=== PATIENT | male | born 1985 | race Caucasian/White ===

== ENCOUNTER 2018-05-12 18:30 | Observation (INO) ==
[2018-05-12] MEDS ORDERED: Morphine Inj 4 MG/ML Vial IV.PUSH ONE (23:45)
[2018-05-12] MEDS ORDERED: Sod Chloride 0.9% Inj 1,000 ML IV.SIG SCH (23:45)
[2018-05-12] MEDS ORDERED: Vancomycin Inj 2,250 MG in Sodium Chlor 0.9% Inj 500 ML IV.SIG SCH (23:45)
[2018-05-12] MEDS ORDERED: Piperacil/Tazo 4.5 GM Premix 4.5 GM/100 ML BAG IV.SIG SCH (23:45)
--- NOTE | 2018-05-12 23:53 | ED ---
HPI General Chief complaint: Skin/Abscess/Foreign Body Stated complaint: skin abscess Time Seen by Provider: 05/12/18 23:33 Source: patient Mode of arrival: ambulatory Limitations: no limitations History of Present Illness HPI narrative: 33-year-old white male presents emergency department with complains of a scrotal abscess. He was seen at an urgent care and an ultrasound had been performed revealing a 4.8 x 2.1 x 3.3 cm suggestive of a soft tissue abscess in the inferior portion of the scrotum. Patient states that this is been present now for the past 4 days. It has been tender and swollen. Patient denies any fever chills. No nausea vomiting. He denies any history of diabetes. He denies any direct trauma. No fever chills. Symptoms are moderate. No alleviating or exacerbating activity. No urinary symptoms. No abdominal pain. Related Data Home Medications Medication Instructions Recorded Confirmed No Known Home Medications 05/12/18 05/12/18 Allergies Allergy/AdvReac Type Severity Reaction Status Date / Time No Known Allergies Allergy Unverified 05/12/18 23:40 Review of Systems ROS: all other systems reviewed are negative [facility] Medical History Medical History HTN (hypertension) (Acute) Sepsis (Acute) Social History Social History Smoking Status: Never smoker How Often Do You Have a Drink Containing Alcohol: 4 or more times a week Recent Out of Country Travel within the Last 8 Weeks: No Immunization History Tetanus Immunization: <5 Years Hx Influenza Vaccine This Season: No Exam Narrative Exam Narrative: GENERAL: Well-developed, well-nourished in no acute distress. Nontoxic appearing. HEAD: Normocephalic, atraumatic. EYES: Pupils equal round and reactive. Extraocular motions intact. No scleral icterus. No injection or drainage. ENT: TMs clear without erythema. The external auditory canals clear. Nose: clear . Posterior pharynx is pink and moist. No tonsillar edema or exudate. Uvula midline. Airway patent. NECK: Trachea midline.Supple, nontender, moves head freely. No central bony tenderness or spasm. CARDIOVASCULAR: Regular rate and rhythm without murmurs, gallops, or rubs. RESPIRATORY: Clear to auscultation. Breath sounds equal bilaterally. No wheezes , rales, or rhonchi. GASTROINTESTINAL: Abdomen soft, non-tender, nondistended. No hepato-splenomegaly , or palpable masses. No guarding. EXTREMITIES: No clubbing, cyanosis, or edema. No joint tenderness, effusion, or edema noted. BACK: Nontender without deformity or crepitance. No flank tenderness. Male : Circumcised male. No urethral discharge. Scrotum reveals a soft tissue mobile mildly tender mass in the inferior portion of the scrotum. This does not appear to communicate with the rectum, or testicles. His testicles appear to be normal-appearing without mass. No tenderness. No urethral discharge. This does not appear to be a Jalil's gangrene Course Initial Documented Vital Signs Temperature 98.3 F 05/12/18 19:52 Pulse Rate 119 H 05/12/18 19:52 Respiratory Rate 16 05/12/18 19:52 Blood Pressure 173/103 H 05/12/18 19:52 Pulse Oximetry 99 05/12/18 19:52 Last Documented Vital Signs Temperature 98.3 F 05/12/18 19:52 Pulse Rate 104 H 05/13/18 00:15 Respiratory Rate 15 05/13/18 00:15 Blood Pressure 167/104 H 05/13/18 00:15 Pulse Oximetry 100 05/13/18 00:15 Medical Decision Making MDM Narrative Medical decision making narrative: IV access is obtained. CBC, chemistry ordered. Patient is given liter bolus of saline, Zosyn 4.5 g IV, 20 mg/kg of vancomycin IV. Morphine 4 mg IV. Zofran 4 mg sublingual. The patient has a mobile abscess in the scrotum. I believe that the patient would be best suited with IV antibiotics, observation admission with urology consult in the morning. This case has been discussed with Dr. Gtz who is accepted his admission. She is aware of the ultrasound findings, laboratory testing. Medical Screen Exam Complete: Yes Emergency Medical Condition: Yes Differential Diagnosis Differential Diagnosis: MDM: High Differential diagnoses: Abscess, folliculitis, cellulitis, lymphangitis, abrasion, contact dermatitis Lab Data Result diagrams: 05/13/18 00:14 05/13/18 00:14 Lab Results 05/13/18 05/13/18 Range/Units 00:14 00:14 WBC 11.0 (4.0-11.0) th/mm3 RBC 4.66 (4.50-5.90) mil/mm3 Hgb 15.3 (13.0-17.0) gm/dL Hct 44.7 (39.0-51.0) % MCV 95.8 (80.0-100.0) fL MCH 32.8 (27.0-34.0) pg MCHC 34.2 (32.0-36.0) % RDW 13.3 (11.6-17.2) % Plt Count 296 (150-450) th/mm3 MPV 7.4 (7.0-11.0) fL Neut % (Auto) 76.4 H (16.0-70.0) % Lymph % (Auto) 13.1 (9.0-44.0) % [place] % (Auto) 7.4 (0.0-8.0) % Eos % (Auto) 2.1 (0.0-4.0) % Baso % (Auto) 1.0 (0.0-2.0) % Neut # (Auto) 8.4 H (1.8-7.7) th/mm3 Lymph # (Auto) 1.4 (1.0-4.8) th/mm3 [place] # (Auto) 0.8 (0.0-0.9) th/mm3 Eos # (Auto) 0.2 (0.0-0.4) th/mm3 Baso # (Auto) 0.1 (0.0-0.2) th/mm3 WBC Differential . Differential Comment Auto diff final Sodium 138 (136-145) meq/L Potassium 4.4 (3.5-5.1) meq/L Chloride 99 (98-107) meq/L Carbon Dioxide 28.6 (21.0-32.0) meq/L Anion Gap 10 (5-15) meq/L BUN 13 (7-18) mg/dL Creatinine 1.02 (0.60-1.30) mg/dL Estimated GFR 83 L (>89) mL/min Random Glucose 99 (74-106) mg/dL Calcium 9.7 (8.5-10.1) mg/dL Discharge Plan Discharge Disposition Patient Disposition: 30 Still Patient Discharge Condition Condition: Stable Physicians Team ED Provider: [facility] Midlevel Provider: Jorge Skinner Primary Care Provider: Primary Care Physici,No Rxs /Orders / Referrals /Forms Prescriptions: No Action No Known Home Medications RF: 0 Status ED Status: With Doctor
[2018-05-12] MEDS ORDERED: Lisinopril 10 MG Tablet PO ONE (23:54)
[2018-05-13 00:30] LABS: Baso # (Auto) 0.1 th/mm3 (0.0-0.2); Eos # (Auto) 0.2 th/mm3 (0.0-0.4); Eos % (Auto) 2.1 % (0.0-4.0); Hematocrit 44.7 % (39.0-51.0); Hemoglobin 15.3 gm/dL (13.0-17.0); Lymph # (Auto) 1.4 th/mm3 (1.0-4.8); Lymph % (Auto) 13.1 % (9.0-44.0); Mean Corpuscular HGB Conc 34.2 % (32.0-36.0); Mean Corpuscular Hemoglobin 32.8 pg (27.0-34.0); Mean Corpuscular Volume 95.8 fL (80.0-100.0); Mean Platelet Volume 7.4 fL (7.0-11.0); Mono # (Auto) 0.8 th/mm3 (0.0-0.9); Mono % (Auto) 7.4 % (0.0-8.0); Neut # (Auto) 8.4 th/mm3 (1.8-7.7); Neut % (Auto) 76.4 % (16.0-70.0); Platelet Count 296 th/mm3 (150-450); Red Blood Count 4.66 mil/mm3 (4.50-5.90); Red Cell Distribution Width 13.3 % (11.6-17.2)
[2018-05-13 00:46] LABS: Calcium 9.7 mg/dL (8.5-10.1); Carbon Dioxide 28.6 meq/L (21.0-32.0); Potassium 4.4 meq/L (3.5-5.1)
[2018-05-13] MEDS ORDERED: Vancomycin Consult Pharmacy OTHER PRN (02:52)
[2018-05-13] MEDS ORDERED: Acetaminophen 325 MG Tablet PO PRN (02:54)
[2018-05-13] MEDS ORDERED: Bisacodyl 10 MG Supp RECTAL PRN (02:54)
[2018-05-13] MEDS: Sod Chloride 0.9% Inj 1,000 ML IV.CONT SCH ×4 (03:23→18:36)
--- NOTE | 2018-05-13 03:58 | P.HPIM ---
History of Present Illness Service: [facility] Primary Care Physician: No Primary Care Physician Chief Complaint: scrotal pain History of Present Illness: 33 y/o male with a history of HTN on no medication presented to the ED with complaints of a scrotal abscess. He was seen at an urgent care and an ultrasound had been performed revealing a 4.8 x 2.1 x 3.3 cm suggestive of a soft tissue abscess in the inferior portion of the scrotum. He states it has been going on for 4 days and started small but then go bigger. He states it is tender to touch. NO associated fevers or chills noted. He denies any chest pain , sob, nausea or vomiting. Review of Systems All other systems reviewed negative except as stated in HPI [facility] - History History Provided By: Patient - Medical / Surgical Hx Neg / Unobtainable Surgical History: No Previous Surgery - Medical History Medical History: Medical History (Last Reviewed 05/13/18 @ 03:51 by NICHOL Hernández) HTN (hypertension) Sepsis - Surgical History Surgical History: Surgical History (Last Reviewed 05/13/18 @ 03:51 by NICHOL Hernández) History of nasal surgery - Family History Family History: Family History (Last Reviewed 05/13/18 @ 03:51 by NICHOL Hernández) Father HTN (hypertension) - Social History I have reviewed the patient's Social History: Yes - Tobacco History Smoking Status: Never smoker - Alcohol History How Often Do You Have a Drink Containing Alcohol: 4 or more times a week - Travel History Recent Travel Out of the Country Within the Last 8 Weeks: No - Immunization History Tetanus Immunization: <5 Years Hx Influenza Vaccine This Season: No Medications and Allergies Active Medications: Active Medications Acetaminophen (Tylenol) 650 mg PO Q4H PRN PRN Reason: Temp > 100.4 Al Hydroxide/Mg Hydroxide (Milk Of Magnsara Liq) 30 ml PO Q12H PRN PRN Reason: Mild Constipation Bisacodyl (Dulcolax Supp) 10 mg RECTAL DAILY PRN PRN Reason: SEVERE CONSITIPATION Sodium Chloride (Ns Inj) 1,000 mls @ 0 mls/hr IV.SIG BOLUS [facility] Last Infusion: 05/13/18 01:36 Dose: Infused Sodium Chloride (Ns Inj) 1,000 mls @ 125 mls/hr IV.CONT .Q8H [facility] Last Admin: 05/13/18 03:23 Dose: 125 mls/hr Piperacillin/Tazobactam/Dextrose (Zosyn 3.375 Gm Premix) 50 mls @ 100 mls/hr IV.SIG Q6H [facility] Vancomycin HCl 2,250 mg/ (Sodium Chloride) 522.5 mls @ 250 mls/hr IV.SIG Q12H [facility] Lactulose (Lactulose Liq) 30 ml PO DAILY PRN PRN Reason: SEVERE CONSITIPATION Morphine Sulfate (Morphine Inj) 4 mg IV.PUSH Q4H PRN PRN Reason: pain 6-10 Ondansetron HCl (Zofran Inj) 4 mg IV.PUSH Q6H PRN PRN Reason: NAUSEA OR VOMITING Pharmacy Profile Note (Vancomycin Consult Pharmacy) 1 each OTHER UNSCH PRN PRN Reason: Pharmacy to dose Senna/Docusate Sodium (Lindsay-Colace) 1 tab PO BID [facility] Sennosides (Senokot) 17.2 mg PO Q12H PRN PRN Reason: Moderate Constipation Sodium Chloride (Ns Flush) 2 ml IV.FLUSH PRN PRN PRN Reason: FLUSH AFTER USING IV ACCESS Allergies Allergy/AdvReac Type Severity Reaction Status Date / Time No Known Allergies Allergy Unverified 05/12/18 23:40 Home Medications Medication Instructions Recorded Confirmed Type No Known Home Medications 05/12/18 05/12/18 History Exam Vital signs: Vital Signs 05/12/18 19:52 05/13/18 00:15 05/13/18 02:54 Temperature 98.3 F Pulse Rate 119 H 104 H 100 H Respiratory Rate 16 15 16 Blood Pressure 173/103 H 167/104 H 140/84 Pulse Oximetry 99 100 97 Intake & Output 05/12/18 05/12/18 05/13/18 06:59 18:59 06:59 Intake Total 1100 / 1100 Balance 1100 / 1100 Weight 113.398 kg Intake: IV 1100 / 1100 Zosyn 4.5 GM Premix 4.5 gm In 100 / 100 100 ml @ 200 mls/hr IV.SIG Q8H [facility] Rx#:[id number] NS Inj 1,000 ML @ Wide Open IV. 1000 / 1000 SIG BOLUS [facility] Rx#:[id number] Narrative: GENERAL: This is a well-nourished, well-developed patient, in no apparent distress. CARDIOVASCULAR: Regular rate and rhythm without murmurs, gallops, or rubs. RESPIRATORY: Clear to auscultation. Breath sounds equal bilaterally. No wheezes , rales, or rhonchi. GASTROINTESTINAL: Abdomen soft, non-tender, nondistended. Normal active bowel sounds :Scrotum reveals a soft tissue mobile mildly tender mass in the inferior portion of the scrotum. No drainage. MUSCULOSKELETAL: Extremities without clubbing, cyanosis, or edema. NEURO: Alert & Oriented x4 to person, place, time, situation. Moves all ext x4 Results - Labs CBC & Chem 7: 05/13/18 00:14 05/13/18 00:14 Labs: Short CBC 05/13/18 Range/Units 00:14 WBC 11.0 (4.0-11.0) th/mm3 Hgb 15.3 (13.0-17.0) gm/dL Hct 44.7 (39.0-51.0) % Plt Count 296 (150-450) th/mm3 BMP 05/13/18 00:14 Sodium 138 Potassium 4.4 Chloride 99 Carbon Dioxide 28.6 BUN 13 Creatinine 1.02 Calcium 9.7 Caprini VTE Risk Assessment Caprini VTE Risk Assessment: No/Low Risk (score <= 1) Caprini Risk Assessment Model: Point Value = 1 Point Value = 2 Point Value = 3 Point Value = 5 Age 41-60 Minor surgery BMI > 25 kg/m2 Swollen legs Varicose veins or History of unexplained or recurrent spontaneous Oral contraceptives or hormone replacement Sepsis (< 1 month) Serious lung disease, including pneumonia (< 1 month) Abnormal pulmonary function Acute myocardial infarction Congestive heart failure (< 1 month) History of inflammatory bowel disease Medical patient at bed rest Age 61-74 Arthroscopic surgery Major open surgery (> 45 min) Laparoscopic surgery (> 45 min) Malignancy Confined to bed (> 72 hours) Immobilizing plaster cast Central venous access Age >= 75 History of VTE Family history of VTE Factor V Leiden Prothrombin [id number] Lupus anticoagulant Anticardiolipin antibodies Elevated serum homocysteine Heparin-induced thrombocytopenia Other congenital or acquired thrombophilia Stroke (< 1 month) Elective arthroplasty Hip, pelvis, or leg fracture Acute spinal cord injury (< 1 month) Prophylaxis Regimen: Total Risk Factor Score Risk Level Prophylaxis Regimen 0-1 Low Early ambulation 2 Moderate Order ONE of the following: *Sequential Compression Device (SCD) *Heparin 5000 units SQ BID 3-4 Higher Order ONE of the following medications: *Heparin 5000 units SQ TID *Enoxaparin/Lovenox 40 mg SQ daily (WT < 150 kg, CrCl > 30 mL/min) *Enoxaparin/Lovenox 30 mg SQ daily (WT < 150 kg, CrCl > 10-29 mL/min) *Enoxaparin/Lovenox 30 mg SQ BID (WT < 150 kg, CrCl > 30 mL/min) AND/OR *Sequential Compression Device (SCD) 5 or more Highest Order ONE of the following medications: *Heparin 5000 units SQ TID (Preferred with Epidurals) *Enoxaparin/Lovenox 40 mg SQ daily (WT < 150 kg, CrCl > 30 mL/min) *Enoxaparin/Lovenox 30 mg SQ daily (WT < 150 kg, CrCl > 10-29 mL/min) *Enoxaparin/Lovenox 30 mg SQ BID (WT < 150 kg, CrCl > 30 mL/min) AND *Sequential Compression Device (SCD) Assessment and Plan - Plan Scrotal abscess Outpatient US revealed a 4.8 x 2.1 x 3.3 cm suggestive of a soft tissue abscess in the inferior portion of the scrotum. Consult urology Morphine IV for pain management IV antibiotics: Vancomycin and Zosyn NPO, IVF DVT prophylaxis: SCDS Discussed Condition With: Patient and RN
[2018-05-13 05:27] LABS: Activated Partial Thrombo Time 30.8 sec (24.3-30.1); INR 1.2 Ratio
[2018-05-13] MEDS: Piperacil/Tazo 3.375 GM Premix 50 ML IV.SIG SCH ×3 (06:00→18:33)
[2018-05-13] MEDS: Senna/Docusate Sodium 8.6/50 MG Tablet PO SCH (08:46)
[2018-05-13] MEDS: Vancomycin Inj 2,000 MG in Sodium Chlor 0.9% Inj 500 ML IV.SIG SCH (12:02)
--- NOTE | 2018-05-13 12:55 | MB ---
cc: KaydenCelestino Delgado DO DATE: 05/13/2018 HISTORY OF PRESENT ILLNESS: This is a pleasant 33-year-old male who presents with a 4-day history of scrotal swelling, who had a scrotal ultrasound demonstrating a scrotal abscess measuring 4.8 cm x 2.1 cm x 3.3 cm in size. He denies any fever or chills or prior history of any scrotal abscess. He is not a diabetic. He denies any fever or chills or difficulty with urination. No history of prostatitis. PAST MEDICAL HISTORY: Includes hypertension. PAST SURGICAL HISTORY: Hand surgery after dog bite. ALLERGIES: HE HAS NO ALLERGIES. MEDICATIONS: Refer to the chart. SOCIAL HISTORY: Drinks alcohol on occasion, but denies any smoking, denies using drugs. FAMILY HISTORY: Father with hypertension. REVIEW OF SYSTEMS: Scrotal swelling is noted. Denies chest pain, shortness of breath, abdominal pain, difficulty urination, gait disturbances, bleeding disorders, heat or cold intolerance, skin lesions. Remaining review of systems were reviewed and were negative. PHYSICAL EXAMINATION: VITAL SIGNS: Temperature 98.5, heart rate 86, respiratory rate 20, 134/81. GENERAL: Reveals a well-developed, well-nourished, 33-year-old male in no acute distress. HEENT: Normocephalic, atraumatic. Pupils equal, round, regular and reactive to light. Extraocular movements intact. NECK: Supple. HEART: Regular rate and rhythm. LUNGS: Clear. ABDOMEN: Soft, nontender, nondistended. GENITOURINARY: Scrotal abscess noted inferior scrotum approximately 4 cm in size. EXTREMITIES: Show no cyanosis, clubbing, or edema. LABORATORY DATA: White count 11.0, hemoglobin 15.3, hematocrit 44.7, platelet count of 296. PT 12, INR 1.2, PTT 30.8. BMP: Sodium 138, potassium 4. , chloride 99, CO2 28.6, BUN 13, creatinine 1.0, glucose of 99. ASSESSMENT AND PLAN: A 33-year-old male with evidence of scrotal abscess; we will make n.p.o. for I and D of scrotal abscess later today. Thank you for the consult. DO LISANDRO Santana/robbie/kd , 09:15 AM , 09:22 AM
[2018-05-13] MEDS ORDERED: Vancomycin Inj 2,250 MG in Sodium Chlor 0.9% Inj 500 ML IV.SIG SCH (13:00)
[2018-05-13] MEDS ORDERED: Metoprolol Tartrate 25 MG Tablet PO ONE (15:00)
[2018-05-13] MEDS ORDERED: Chlorhexidine Gluconate 2% 1 Pack (2 Cloths) TOPICAL ONE (15:00)
[2018-05-13] MEDS ORDERED: Sodium Chlor 0.9% Inj 500 ML IV.CONT ONE (15:00)
[2018-05-13] MEDS ORDERED: Dexmedetomidine Inj 200 MCG/2 ML Vial ONE (15:48)
--- NOTE | 2018-05-13 16:21 | P.OP ---
- Preoperative Diagnosis (1) Scrotal abscess - Postoperative Diagnosis (1) Scrotal abscess Date of procedure: 05/13/18 Procedure: Incision and drainage of scrotal abscess Anesthesia: other (General LMA) Surgeon: Celestino Monique DO Estimated blood loss (mL): 0 Operation and Findings: 33-year-old male presented with a right-sided scrotal abscess to the emergency room yesterday. Ultrasound findings showed a 4 cm right lower scrotal abscess. Decision made to bring the patient undergo incision and drainage of scrotal abscess in the operating room. Patient was brought to the operating room and identified by myself as Anselmo Stallworth. He is placed in a dorsal lithotomy position, prepped and draped in sterile fashion, received preprocedure antibiotics and general LMA anesthesia was administered. 15 blade was used to make the opening incision which was approximately 3 cm over the area of the fluctuance with a scrotal abscess on the right hemiscrotum was located. Purulent fluid was cultured and drained from the abscess cavity. This was then irrigated with normal saline. Iodoform packing was then placed into the wound area and fluffs were placed over the wound area. He tolerated the procedure well and was awoken and transferred recovery in stable condition. He will need daily packing changes on an outpatient basis.
[2018-05-13] MEDS ORDERED: fentaNYL Citrate Inj 100 MCG/2 ML Ampul ONE (16:31)
[2018-05-14] MEDS: Senna/Docusate Sodium 8.6/50 MG Tablet PO SCH ×2 (00:08→10:55)
[2018-05-14] MEDS: Piperacil/Tazo 3.375 GM Premix 50 ML IV.SIG SCH ×3 (00:52→13:23)
[2018-05-14] MEDS: Vancomycin Inj 2,000 MG in Sodium Chlor 0.9% Inj 500 ML IV.SIG SCH ×2 (00:53→13:25)
[2018-05-14] MEDS: Morphine Inj 4 MG/ML Vial IV.PUSH PRN ×2 (01:41→06:46)
[2018-05-14 06:19] LABS: Baso # (Auto) 0.1 th/mm3 (0.0-0.2); Baso % (Auto) 0.5 % (0.0-2.0); Eos # (Auto) 0.1 th/mm3 (0.0-0.4); Eos % (Auto) 0.7 % (0.0-4.0); Hematocrit 40.2 % (39.0-51.0); Hemoglobin 13.8 gm/dL (13.0-17.0); Lymph # (Auto) 1.1 th/mm3 (1.0-4.8); Lymph % (Auto) 9.6 % (9.0-44.0); Mean Corpuscular HGB Conc 34.4 % (32.0-36.0); Mean Corpuscular Hemoglobin 33.1 pg (27.0-34.0); Mean Corpuscular Volume 96.1 fL (80.0-100.0); Mean Platelet Volume 7.8 fL (7.0-11.0); Mono # (Auto) 0.7 th/mm3 (0.0-0.9); Mono % (Auto) 6.5 % (0.0-8.0); Neut # (Auto) 9.5 th/mm3 (1.8-7.7); Neut % (Auto) 82.7 % (16.0-70.0); Platelet Count 271 th/mm3 (150-450); Red Blood Count 4.18 mil/mm3 (4.50-5.90); Red Cell Distribution Width 12.8 % (11.6-17.2); White Blood Count 11.4 th/mm3 (4.0-11.0)
[2018-05-14 06:50] LABS: Calcium 8.4 mg/dL (8.5-10.1); Carbon Dioxide 25.1 meq/L (21.0-32.0); Potassium 3.9 meq/L (3.5-5.1)
[2018-05-14] MEDS: Sod Chloride 0.9% Inj 1,000 ML IV.CONT SCH ×2 (06:50→13:23)
--- NOTE | 2018-05-14 08:53 | P.PNURO ---
Subjective Patient symptoms today: Pt feels well. No complaints. Objective Vital Signs: Vital Signs 05/13/18 12:00 05/13/18 16:25 05/13/18 16:45 Temperature 98.3 F 97.6 F Pulse Rate 101 H 77 74 Respiratory Rate 16 20 16 Blood Pressure 124/74 91/52 L 106/62 Pulse Oximetry 94 L 95 99 05/13/18 17:00 05/13/18 17:30 05/13/18 20:00 Temperature 98 F Pulse Rate 72 81 81 Respiratory Rate 18 20 18 Blood Pressure 110/64 124/67 122/63 Pulse Oximetry 99 95 94 L 05/13/18 21:00 05/14/18 00:00 05/14/18 04:00 Temperature 97.9 F 97.6 F Pulse Rate 80 80 Respiratory Rate 18 18 18 Blood Pressure 139/89 151/87 H Pulse Oximetry 96 94 L Intake & Output 05/13/18 05/14/18 05/14/18 18:59 06:59 18:59 Intake Total 3170 / 3170 2099 / 2099 50 / 50 Output Total 5 / 5 Balance 3165 / 3165 2099 / 2099 50 / 50 Weight 117 kg Intake: IV 2570 / 2570 1620 / 1620 50 / 50 NS Inj 1,000 ML @ 125 mls/hr IV 1999 / 1999 1000 / 1000 .CONT .Q8H [facility] Rx#:[id number] Zosyn 3.375 GM Premix 50 ML @ 50 / 50 100 / 100 50 / 50 100 mls/hr IV.SIG Q6H [facility] Rx#: [id number] Vancomycin Inj 2,000 MG In NS 520 / 520 520 / 520 Inj 500 ML @ 250 mls/hr IV.SIG Q12H [facility] Rx#:[id number] Oral 480 / 480 Anesthesia Amount 600 / 600 Output: Estimated Blood Loss 5 / 5 Other: # Voids 2 Result Diagrams: 05/14/18 05:52 05/14/18 05:52 Medications and IVs: Active Medications Generic Name Dose Route Start Last Admin Trade Name Freq PRN Reason Stop Dose Admin Acetaminophen 650 mg 05/13/18 02:54 Tylenol PO Q4H PRN Temp > 100.4 Al Hydroxide/Mg Hydroxide 30 ml 05/13/18 02:54 Milk Of Magnesia Liq PO Q12H PRN Mild Constipation Bisacodyl 10 mg 05/13/18 02:54 Dulcolax Supp RECTAL DAILY PRN SEVERE CONSITIPATION Sodium Chloride 1,000 mls @ 0 mls/hr 05/12/18 23:45 05/13/18 01:36 Ns Inj IV.SIG Infused BOLUS [facility]IR Infusion Wide Open Sodium Chloride 1,000 mls @ 125 mls/hr 05/13/18 03:00 05/14/18 06:50 Ns Inj IV.CONT 125 mls/hr .Q8H [facility] Administration Piperacillin/Tazobactam/Dextrose 50 mls @ 100 mls/hr 05/13/18 06:00 05/14/18 07:21 Zosyn 3.375 Gm Premix IV.SIG Infused Q6H [facility] Infusion Vancomycin HCl 2,000 mg/ 520 mls @ 250 mls/hr 05/13/18 13:00 05/14/18 03:28 Sodium Chloride IV.SIG Infused Q12H [facility] Infusion Lactated Ringer's 1,000 mls @ 30 mls/hr 05/13/18 15:00 05/13/18 16:42 Lr 1000 Ml Inj IV.CONT 05/14/18 14:59 Not Given .Q24H ONE Lactulose 30 ml 05/13/18 02:54 Lactulose Liq PO DAILY PRN SEVERE CONSITIPATION Miscellaneous Information 0 each 05/14/18 12:45 [facility] Ordered Lab Info OTHER 05/14/18 12:46 ONCE ONE Miscellaneous Information 1 each 05/13/18 17:11 [facility] Information OTHER 05/14/18 17:11 UNSCH PRN SEE LABEL COMMENTS Morphine Sulfate 4 mg 05/13/18 02:53 05/14/18 06:46 Morphine Inj IV.PUSH 4 mg Q4H PRN Administration pain 6-10 Ondansetron HCl 4 mg 05/13/18 02:54 05/14/18 00:53 Zofran Inj IV.PUSH 4 mg Q6H PRN Administration NAUSEA OR VOMITING Pharmacy Profile Note 1 each 05/13/18 02:52 Vancomycin Consult Pharmacy OTHER UNSCH PRN Pharmacy to dose Senna/Docusate Sodium 1 tab 05/13/18 09:00 05/14/18 00:08 Lindsay-Colace PO Not Given BID [facility] Sennosides 17.2 mg 05/13/18 02:54 Senokot PO Q12H PRN Moderate Constipation Sodium Chloride 2 ml 05/12/18 23:45 Ns Flush IV.FLUSH PRN PRN FLUSH AFTER USING IV ACCESS Objective Remarks: Abd:soft,nt,nd Wound: minimal drainage. Packing in place. Assessment and Plan - Plan Stable s/p I&D of scrotal abcess Stable for discharge F/U office one week for wound check Packing changes daily PO Abx
--- NOTE | 2018-05-14 10:58 | P.DCO ---
- Home Health Nursing Order: Medical education, Medication education-adverse effect, Wound care and dressing changes (daily packing with iodoform gauze of scrotal abscess for 3 days then every other day), Nursing assessment with vital signs - Certification I have seen patient Anselmo Stallworth on 05/14/18. My clinical findings support the need for the requested home health care services because: Medication compliance is questionable I certify that my clinical findings support that this patient is homebound because: Need for psychosocial assistance
[2018-05-14] MEDS ORDERED: Naloxone Inj 0.4 MG/ML Vial IV.PUSH PRN (11:18)
--- NOTE | 2018-05-14 11:25 | P.PN ---
Subjective Interval history: Follow-up scrotal abscess. He is doing good he has been cleared for dc by pending wound care arrangement. Counselled regarding narcotics. E force queried Physical Exam Vital signs: Vital Signs 05/13/18 12:00 05/13/18 16:25 05/13/18 16:45 Temperature 98.3 F 97.6 F Pulse Rate 101 H 77 74 Respiratory Rate 16 20 16 Blood Pressure 124/74 91/52 L 106/62 Pulse Oximetry 94 L 95 99 05/13/18 17:00 05/13/18 17:30 05/13/18 20:00 Temperature 98 F Pulse Rate 72 81 81 Respiratory Rate 18 20 18 Blood Pressure 110/64 124/67 122/63 Pulse Oximetry 99 95 94 L 05/13/18 21:00 05/14/18 00:00 05/14/18 04:00 Temperature 97.9 F 97.6 F Pulse Rate 80 80 Respiratory Rate 18 18 18 Blood Pressure 139/89 151/87 H Pulse Oximetry 96 94 L 05/14/18 08:00 Temperature 97.6 F Pulse Rate 84 Respiratory Rate 18 Blood Pressure 170/112 H Pulse Oximetry 95 Intake & Output 05/13/18 05/14/18 05/14/18 18:59 06:59 18:59 Intake Total 3170 / 3170 2099 / 2099 50 / 50 Output Total 5 / 5 Balance 3165 / 3165 2099 / 2099 50 / 50 Weight 117 kg Intake: IV 2570 / 2570 1620 / 1620 50 / 50 NS Inj 1,000 ML @ 125 mls/hr IV 1999 / 1999 1000 / 1000 .CONT .Q8H [facility] Rx#:[id number] Zosyn 3.375 GM Premix 50 ML @ 50 / 50 100 / 100 50 / 50 100 mls/hr IV.SIG Q6H [facility] Rx#: [id number] Vancomycin Inj 2,000 MG In NS 520 / 520 520 / 520 Inj 500 ML @ 250 mls/hr IV.SIG Q12H [facility] Rx#:[id number] Oral 480 / 480 Anesthesia Amount 600 / 600 Output: Estimated Blood Loss 5 / 5 Other: # Voids 2 Narrative: GENERAL: Well-developed, well-nourished in no distress SKIN: Warm and dry. CARDIOVASCULAR: Regular rate and rhythm. RESPIRATORY: No accessory muscle use. Clear to auscultation. Breath sounds equal bilaterally. GASTROINTESTINAL: Abdomen soft, non-tender, nondistended. : Packing in place in the scrotum with mild erythema and swelling MUSCULOSKELETAL: Extremities without clubbing, cyanosis, or edema. No obvious deformities. NEUROLOGICAL: Awake and alert. No obvious cranial nerve deficits. Motor grossly within normal limits. Five out of 5 muscle strength in the arms and legs. Normal speech. PSYCHIATRIC: Appropriate mood and affect; insight and judgment normal. Results - Labs CBC & Chem 7: 05/14/18 05:52 05/14/18 05:52 Laboratory Results - last 24 hr 05/14/18 05/14/18 05:52 05:52 WBC 11.4 H RBC 4.18 L Hgb 13.8 Hct 40.2 MCV 96.1 MCH 33.1 MCHC 34.4 RDW 12.8 Plt Count 271 MPV 7.8 Neut % (Auto) 82.7 H Lymph % (Auto) 9.6 [place] % (Auto) 6.5 Eos % (Auto) 0.7 Baso % (Auto) 0.5 Neut # (Auto) 9.5 H Lymph # (Auto) 1.1 [place] # (Auto) 0.7 Eos # (Auto) 0.1 Baso # (Auto) 0.1 WBC Differential . Differential Comment Auto diff final Sodium 138 Potassium 3.9 Chloride 101 Carbon Dioxide 25.1 Anion Gap 12 BUN 14 Creatinine 1.31 H Estimated GFR 62 L Random Glucose 116 H Calcium 8.4 L D Microbiology 05/13/18 16:04 Abscess - Scrotum Gram Stain - Final - Procedures Incision and drainage of scrotal abscess Assessment and Plan - Assessment (1) Scrotal abscess Code(s): N49.2 - Inflammatory disorders of scrotum Status: Acute - Plan Scrotal abscess status post I&D. Stable continue postoperative care with wound care, pain management with Lortab and IV morphine and antibiotic with IV Vanco and Zosyn follow-up culture. Discuss with patient cleared for discharge when wound care arranged. He needs daily packing for the next 3 days then every other day follow-up in the clinic in 1 week. Consult case management. Mild leukocytosis secondary to above. Monitor hypertension exacerbated by pain. Continue to monitor with as needed IV Vasotec and clonidine Mild renal dysfunction. Nonoliguric. Continue IV hydration DVT prophylaxis: SCDS Discharge Planning: Discharge patient to home Condition on discharge: Improved Regular Diet as tolerated Ad Samantha activity no driving Rx written: Keflex and Lortab Follow-up with primary care physician in
[2018-05-14] MEDS ORDERED: Pharmacy Ordered Lab Info OTHER ONE (12:45)
== END 2018-05-14 20:41 | disposition home health service (06) ==
LOC: NEDA 18:30 → NEPD 18:30 → NEDA 05-13 05:32 → NEPGCP 05-13 05:41 → N07 05-13 17:42
PROVIDERS: ADMIT Internal Medicine; ATTEND Internal Medicine